=== PATIENT | male | born 1975 | race Two or more races ===

== ENCOUNTER 2018-11-25 10:33 | Emergency (ER) | payer MEDICAID ==
[~2018-11-25] VITALS: Ht 172.7 cm; Wt 59.0 kg
[~2018-11-25 10:33] MED LIST: LEVEMIR100 UNIT/1 SUBQ
[2018-11-25 10:40] VITALS: BP 138/98
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
[2018-11-25] MEDS ORDERED: HYDROcodone/Acetamin 7.5/325 tab ORAL ONE (11:00)
[2018-11-25] MEDS ORDERED: Ketorolac 30mg Inj IM ONE (11:00)
--- NOTE | 2018-11-25 11:30 | NUR ---
ED Nurse Note: Patient currently in xray. Analgesia given pre transfer. industrial maintenance technician advised of same. Labs drawn.
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
--- NOTE | 2018-11-25 12:32 | NUR ---
ED Nurse Note: Patient returned from xray at approx 11.45. Patient requires CT of the left hip.
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
[2018-11-25 12:36] LABS: BASOPHILS % (AUTO) 1.2 % (0.0-2.0); EOSINOPHILS % (AUTO) 0.9 % (0.0-3.0); HEMATOCRIT 53.4 % (42.0-52.0); LYMPHOCYTES % (AUTO) 27.2 % (20.0-45.0); MEAN CORPUSCULAR VOLUME 87 FL (80-99); MONOCYTES % (AUTO) 6.3 % (1.0-10.0); NEUTROPHILS % (AUTO) 64.4 % (45.0-75.0); PLATELET COUNT 361 K/UL (150-450); RED BLOOD COUNT 6.17 M/UL (4.70-6.10); RED CELL DISTRIBUTION WIDTH 11.3 % (11.6-14.8); WHITE BLOOD COUNT 8.8 K/UL (4.8-10.8)
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
--- NOTE | 2018-11-25 12:39 | NUR ---
ED Nurse Note: Patients at bedside.
[2018-11-25 12:42] LABS: ANION GAP 8 mmol/L (5-15); BLOOD UREA NITROGEN 14 mg/dL (7-18); CALCIUM 10.1 MG/DL (8.5-10.1); CARBON DIOXIDE 31 MMOL/L (21-32); CHLORIDE 98 MMOL/L (98-107); CREATININE 0.9 MG/DL (0.55-1.30); POTASSIUM 4.8 MMOL/L (3.5-5.1); SODIUM 137 MMOL/L (136-145)
--- NOTE | 2018-11-25 12:44 | NUR ---
ED Nurse Note: Urine sample taken to the lab.
--- NOTE | 2018-11-25 12:46 | NUR ---
ED Nurse Note: Patients daughter at bedside.
[2018-11-25] MEDS ORDERED: Insulin Human Regular 100units/ml 3ml SUBQ ONE (13:00)
--- NOTE | 2018-11-25 13:06 | NUR ---
ED Nurse Note: Patient currently in CT scan.
--- NOTE | 2018-11-25 13:17 | NUR ---
ED Nurse Note: Patient returned from CT. Patients and daughter left department will retrun later. Patient reports improved pain score in the left shoulder. Vitals monitored.
[2018-11-25 13:19] VITALS: BP 136/86
[2018-11-25] MEDS ORDERED: ACETAMINOPHEN325 M1 ORAL ×2 (14:31→15:54)
[2018-11-25] MEDS ORDERED: IBUPROFEN600 MG ORAL ×2 (14:31→15:54)
[2018-11-25] MEDS ORDERED: HYDROCODON-ACE1 EA16 ORAL ×2 (14:31→15:54)
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
--- NOTE | 2018-11-25 14:50 | NUR ---
ER DISCHARGE NOTE: Patient is cleared to be discharged per ERMD, pt is aox4, on room air, with stable vital signs. pt was given dc and prescription instructions, pt was able to verbalize understanding, pt id band and iv site removed without complications. pt is able to ambulate with steady gait. pt took all belongings. Patient reports improved pain score. Disc containing radiography required prior to patient discharge. Crutches also provided with advice.
[2018-11-25 14:51] VITALS: BP 140/79
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
== END 2018-11-25 14:50 | disposition home or self-care (01) ==
LOC: EDBD 10:33 → EMR 10:54
DX: M25.552 Pain in left hip (principal); E10.65 Type 1 diabetes mellitus with hyperglycemia; T14.8XXA Other injury of unspecified body region, initial encounter; M25.532 Pain in left wrist; M25.531 Pain in right wrist; M25.512 Pain in left shoulder; M25.522 Pain in left elbow; Z79.4 Long term (current) use of insulin; V43.52XA Car driver injured in collision with other type car in traffic accident, initial encounter; Y92.410 Unspecified street and highway as the place of occurrence of the external cause
CPT/HCPCS: 36415; 73030; 73070; 73110; 73510; 73700; 80048; 82009; 85025; 96360; 96372; J1815; J1885; Z7502; 73502; 99284